=== PATIENT | female | born 1955 | race Caucasian/White ===

== ENCOUNTER → 2017-09-30 | Outpatient (CLI) | payer OTHER ==
[~2017-09-30] MED LIST: ALPR0.5T6 PO; B-50 COMPLEX PO; LEVO137T3 PO; [UNRECOGNIZED DRUG - OTHER] PO
== END | disposition home or self-care (01) ==
LOC: STAR 15:07
PROVIDERS: ATTEND Surgery
DX: Z01.818 Encounter for other preprocedural examination (principal); K43.2 Incisional hernia without obstruction or gangrene; Z87.891 Personal history of nicotine dependence
CPT/HCPCS: 93005

== ENCOUNTER 2017-10-09 06:43 | Day surgery (SDC) | payer OTHER ==
[~2017-10-09] VITALS: Ht 168.9 cm; Wt 72.0 kg
[2017-10-09] MEDS ORDERED: LACTATED RINGERS 1,000 ML IV SCH (06:57)
[2017-10-09] MEDS ORDERED: LIDOCAINE/PF 1%, 30ML ONE (08:51)
[2017-10-09] MEDS ORDERED: BUPIVACAINE/PF 0.5% ONE (08:51)
[2017-10-09] MEDS ORDERED: EPINEPHRINE 1 MG/ML, 1ML ONE (08:52)
[2017-10-09] MEDS ORDERED: CEFAZOLIN 1,000 MG ONE (09:16)
[2017-10-09] MEDS ORDERED: DEXAMETHASONE 4 MG/ML, 1ML ONE ×4 (09:16→09:49)
[2017-10-09] MEDS ORDERED: PROPOFOL 10 MG/ML, 20ML ONE ×2 (09:18)
[2017-10-09] MEDS ORDERED: SUCCINYLCHOLINE 20 MG/ML, 10ML ONE (09:18)
[2017-10-09] MEDS ORDERED: ROCURONIUM 10 MG/ML,10ML ONE (09:18)
[2017-10-09] MEDS ORDERED: KETAMINE 10 MG/ML, 20ML ONE (09:19)
[2017-10-09] MEDS ORDERED: MIDAZOLAM 1 MG/ML, 2ML ONE ×2 (09:19)
[2017-10-09] MEDS ORDERED: ONDANSETRON 2MG/ML, 2ML ONE (09:50)
[2017-10-09] MEDS ORDERED: GLYCOPYRROLATE 0.2MG/1ML, 5ML ONE (09:56)
[2017-10-09] MEDS ORDERED: NEOSTIGMINE 1 MG/ML, 10ML ONE (09:56)
[2017-10-09] MEDS ORDERED: hydrALAzine 20 MG/ML, 1ML IV PRN (10:00)
[2017-10-09] MEDS ORDERED: ONDANSETRON 2MG/ML, 2ML IVPush PRN (10:00)
[2017-10-09] MEDS ORDERED: EPHEDRINE 50 MG/ML, 1ML IVPush PRN (10:00)
[2017-10-09] MEDS ORDERED: LABETALOL 5MG/ML, 20ML IV PRN (10:00)
[2017-10-09] MEDS ORDERED: MIDAZOLAM 1 MG/ML, 2ML IV PRN (10:00)
[2017-10-09] MEDS ORDERED: METOCLOPRAMIDE 5 MG/ML, 2ML IV PRN (10:00)
[2017-10-09] MEDS ORDERED: PROMETHAZINE 25 MG/ML, 1ML IV PRN (10:00)
[2017-10-09] MEDS ORDERED: LORazepam 2 MG/ML, 1ML IVPush PRN (10:00)
[2017-10-09] MEDS ORDERED: METOPROLOL 1 MG/ML, 5ML IV PRN (10:00)
[2017-10-09] MEDS ORDERED: ALBUTEROL SULFATE 2.5 MG/3 ML NPPB PRN (10:00)
[2017-10-09] MEDS ORDERED: KETOROLAC 30 MG/1 ML ONE (10:17)
[2017-10-09] MEDS ORDERED: ACETAMINOPHEN 325 MG TABLET ONE (10:17)
[2017-10-09] MEDS ORDERED: ACETAMINOPHEN 650 MG/20.3 ML UDC ONE (10:17)
[2017-10-09] MEDS ORDERED: SUGAMMADEX 200 MG/2 ML IVPush ONE (10:30)
[2017-10-09] MEDS ORDERED: KETOROLAC 30 MG/1 ML IV PRN (10:30)
[2017-10-09] MEDS ORDERED: ACETAMINOPHEN 325 MG TABLET PO PRN (10:30)
== END 2017-10-09 13:35 ==
LOC: OUT 06:43
PROVIDERS: ATTEND Surgery
DX: K43.2 Incisional hernia without obstruction or gangrene (principal); K42.9 Umbilical hernia without obstruction or gangrene; Z88.5 Allergy status to narcotic agent; Z72.89 Other problems related to lifestyle; Z98.890 Other specified postprocedural states
CPT/HCPCS: 49561; 49568; C1781; J0171; J0330; J0690; J1100; J1885; J2250; J2405; J2704; J2710; J3490; J7120